=== PATIENT | female | born 1990 ===

== ENCOUNTER 2021-09-06 04:27 | Outpatient (CLI) | payer SELFPAY ==
[~2021-09-06] VITALS: Ht 162.6 cm; Wt 74.3 kg
[2021-09-06 04:30] VITALS: BP 132/79
== END 2021-09-06 05:05 | disposition left against medical advice (07) ==
LOC: M LDO 04:27
PROVIDERS: ATTEND Obstetrics & Gynecology
DX: O26.853 Spotting complicating pregnancy, third trimester (principal); O60.03 Preterm labor without delivery, third trimester; Z3A.38 38 weeks gestation of pregnancy
CPT/HCPCS: 59025; 76815; G0463